=== PATIENT | male | born 2000 | race African-American/Black ===

== ENCOUNTER 2018-03-07 12:33 | Emergency (ER) | payer SELFPAY ==
[~2018-03-07] VITALS: Ht 182.9 cm; Wt 85.3 kg
[2018-03-07 12:44] VITALS: BP 127/69
[2018-03-07] MEDS ORDERED: Lidocaine 1% MPF 10mg/ml 5ml INJ ONE (13:00)
--- NOTE | 2018-03-07 13:07 | Emergency Room Report ---
History of Present Illness General Chief Complaint: Male Urogenital Problems Source: Patient Present Illness HPI 17 -year-old male presents to the emergency department complaining of 8 out of 10 in severity dysuria, penile discharge and mild urethral erythema times one week. Patient reports testing positive for chlamydia and gonorrhea he was seen by his PCP who referred him to the ER for injection. Patient denies fevers, chills, nausea, vomiting, joint pain, testicular pain or swelling, swollen tender lymph nodes or rashes. He denies abdominal pain, hematuria or urinary frequency/urgency. Allergies: Coded Allergies: ASPIRIN (Verified Allergy, Unknown, EYE SWELLING, 03/07/18) Patient History Past Medical History: none Past Surgical History: none Pertinent Family History: none Reviewed Nursing Documentation: PMH: Agreed; PSxH: Agreed Review of Systems All Other Systems: negative except mentioned in HPI Physical Exam Vital Signs Date Time Temp Pulse Resp B/P (MAP) Pulse Ox O2 Delivery O2 Flow Rate FiO2 03/07/18 12:44 98.7 85 17 127/69 96 Room Air 98.8 Sp02 EP Interpretation: reviewed, normal General Appearance: no apparent distress, alert, GCS 15, non-toxic Head: normocephalic, atraumatic ENT: hearing grossly normal, normal voice Neck: full range of motion Respiratory: lungs clear, normal breath sounds, speaking full sentences Cardiovascular #1: regular rate, rhythm Gastrointestinal: non tender, soft Rectal: deferred Genitourinary: normal inspection, no CVA tenderness, deferred - genital exam deferred by pt. Musculoskeletal: back normal, gait/station normal, normal range of motion, non- tender Neurologic: alert, oriented x3, responsive, motor strength/tone normal, sensory intact, normal gait, speech normal, grossly normal Psychiatric: judgement/insight normal Skin: normal color, no rash, warm/dry, well hydrated Lymphatic: no adenopathy Medical Decision Making PA Attestation Dr. Uriarte is my supervising Physician whom patient management has been discussed with. Diagnostic Impression: Primary Impression: Urethritis ER Course 17 -year-old male presents to the emergency department complaining of 8 out of 10 in severity dysuria, penile discharge and mild urethral erythema times one week. Patient reports testing positive for chlamydia and gonorrhea he was seen by his PCP who referred him to the ER for injection. Patient denies fevers, chills, nausea, vomiting, joint pain, testicular pain or swelling, swollen tender lymph nodes or rashes. He denies abdominal pain, hematuria or urinary frequency/urgency. Ddx considered but are not limited to UTi , Urethritis, LGV, STI, Stone, Cystitis, prostatitis PE: deferred, pt. reports was just performed by his PCP prior to being sent here. Vital signs: are WNL, pt. is afebrile H&PE are most consistent with Urethritis ORDERS: ED INTERVENTIONS: -250mg Rocephin IM -1g Azithromycin PO DISCHARGE: At this time pt. is stable for d/c to home. Will provide printed patient care instructions, and any necessary prescriptions. Care plan and follow up instructions have been discussed with the patient prior to discharge. Last Vital Signs Date Time Temp Pulse Resp B/P (MAP) Pulse Ox O2 Delivery O2 Flow Rate FiO2 03/07/18 12:44 98.7 85 17 127/69 96 Room Air 98.7 Disposition: HOME, SELF-CARE Condition: Stable Scripts No Active Prescriptions or Reported Meds Patient Instructions: Urethritis, Adult Additional Instructions: MAKE SURE YOUR PARTNERS GET TREATED WITH ANTIBIOTICS to prevent becoming re- infected No intercourse for 7-10 days, as you are infectious and can still spread the bacterial infection. Follow up with PCP in 3-5 days Return sooner to ED if new symptoms occur, or current symptoms become Radha Fernandez Mar 07, 2018 13:07
[2018-03-07] MEDS ORDERED: Azithromycin 250mg tab ORAL ONE (13:15)
[2018-03-07 13:37] VITALS: BP 127/69
== END 2018-03-07 13:36 | disposition home or self-care (01) ==
LOC: EMR 13:00
DX: N34.2 Other urethritis (principal); R36.9 Urethral discharge, unspecified; A74.9 Chlamydial infection, unspecified; A54.9 Gonococcal infection, unspecified; Z88.6 Allergy status to analgesic agent
CPT/HCPCS: 96372; 99283; J0696